=== PATIENT | male | born 1955 | race Caucasian/White ===

== ENCOUNTER 2018-01-22 15:41 | Emergency (ER) | payer OTHER ==
[2018-01-22 15:54] VITALS: BP 149/68
--- NOTE | 2018-01-22 16:02 | EDPHY ---
H & P Time Seen by Provider: 01/22/18 15:55 HPI/ROS: CHIEF COMPLAINT: Left forearm laceration HISTORY OF PRESENT ILLNESS: Pulling nails with a crowbar just before arrival and lacerated his left forearm accidentally. No foreign body sensation and no weakness or numbness distally. REVIEW OF SYSTEMS: Negative PAST MEDICAL HISTORY: Negative, tetanus status unknown but he thinks he is probably up-to-date Social history: Dr. Dang primary care General Appearance: Alert and conversant, cooperative. 2.5 cm laceration radial surface distal 3rd of the volar forearm. Full-thickness but no tendon or foreign body. Normal FDP and FDS of all fingers, normal wrist flexion and extension, normal motor and sensory and radial ulnar and median nerve distributions. Emergency Department course/MDM: Procedure: Laceration repair. Verbal consent was obtained from the patient. The 2.5 laceration on the left volar forearm was anesthetized using 0.5% bupivacaine with epinephrine. The wound was irrigated with standard emergency department protocol, draped and explored. There were no deep structures involved. No tendon injury was identified. No foreign body found. The wound was repaired with 4 0 Vicryl in 4 0 Prolene. The wound repair was complex. Excellent hemostasis was obtained. Wound care instructions were discussed and the patient was warned regarding scarring. The procedure was performed by myself. Smoking Status: Never smoked Constitutional: Initial Vital Signs Temperature (C) 36.6 C 01/22/18 15:50 Heart Rate 54 L 01/22/18 15:50 Respiratory Rate 16 01/22/18 15:50 Blood Pressure 149/68 H 01/22/18 15:50 O2 Sat (%) 99 01/22/18 15:50 O2 Delivery Mode Room Air Allergies/Adverse Reactions: No Known Allergies Allergy (Verified 01/22/18 15:54) Home Medications: Medication Instructions Recorded Claritin 01/22/18 MDM/Departure - Depart Disposition: Home, Routine, Self-Care Clinical Impression: Laceration of left forearm Qualifiers: Encounter type: initial encounter Qualified Code(s): S51.812A - Laceration without foreign body of left forearm, initial encounter Condition: Good Instructions: Laceration (ED) Additional Instructions: Wound Care Follow-Up: Removal of sutures in 10 days. Suture removal is complimentary in uncomplicated cases. Infection or abnormal findings would require reevaluation by the MD. In that case, you may be billed. Check with Dr. Dang's office tomorrow, if you have not had a tetanus booster within the last 10 years you need to get 1 in the next 72 hours. Referrals: Irvin Dang MD [Primary Care Provider] - As per Instructions
== END 2018-01-22 16:29 | disposition home or self-care (01) ==
PROC: 0HQEXZZ Repair Left Lower Arm Skin, External Approach (ICD-10-PCS; principal; 2018-01-22)
DX: S51.812A Laceration without foreign body of left forearm, initial encounter (principal); W29.8XXA Contact with other powered hand tools and household machinery, initial encounter; Y99.8 Other external cause status; Y93.89 Activity, other specified